=== PATIENT | female | born 1945 | race Caucasian/White ===

== ENCOUNTER 2016-09-18 09:30 | Inpatient (IN) | payer OTHER ==
[~2016-09-18] VITALS: Ht 167.6 cm; Wt 81.0 kg
[2016-09-20 10:45] VITALS: BMI 28.8
[2016-09-20 11:26] VITALS: BP_SYST 108; TEMP 97.8
[2016-10-06 16:14] VITALS: BMI 28.8
[2016-10-06 16:17] VITALS: BP_SYST 108; RESP 20; TEMP 97.8
[2016-10-09] VITALS (27 sets, daily range): BP systolic 100–139; RESP 14–20; TEMP 97.2–98.5; Ht 167.6 cm; Wt 81.0 kg
[2016-10-09] MEDS ORDERED: BACITRACIN 50,000 UNITS INJ IRRIG ONE (07:42)
[2016-10-09] MEDS ORDERED: PHENYLEPHRINE 10 MG/ML VIAL IV ONE (07:48)
[2016-10-09] MEDS ORDERED: DILAUDID 1 MG/ML AMP IV ONE (07:48)
[2016-10-09] MEDS ORDERED: NEOSTIGMINE 10 MG/10 ML VIAL IV ONE (07:48)
[2016-10-09] MEDS ORDERED: LIDOCAINE 2% SYR 5 ML IV ONE (07:48)
[2016-10-09] MEDS ORDERED: PROPOFOL 20 ML PER ML IV ONE (07:48)
[2016-10-09] MEDS ORDERED: ACETAMINOPHEN 1,000 MG/100 ML IV ONE (07:48)
[2016-10-09] MEDS ORDERED: FENTANYL 100 MCG/2 ML AMP IV ONE (07:48)
[2016-10-09] MEDS ORDERED: GLYCOPYRROLATE 0.2 MG/ML VIAL IV ONE ×2 (07:48→10:15)
[2016-10-09] MEDS ORDERED: ROCURONIUM 50 MG VIAL IV ONE (07:48)
[2016-10-09] MEDS ORDERED: SODIUM CHLORIDE 0.9% IV ONE ×4 (09:40)
[2016-10-09] MEDS ORDERED: TRANEXAMIC ACID IV ONE ×4 (09:40)
[2016-10-09] MEDS ORDERED: ROPIVACAINE 0.5% 139 MG, EPINEPHrine 1:1,000 0.2 MG, KETOROLAC INJ 30 MG, MORPHINE 10 MG SUBQ ONE ×4 (09:45)
[2016-10-09] MEDS ORDERED: CEFAZOLIN 2,000 MG in SODIUM CHLORIDE 0.9% 100 ML IV ONE (09:45)
[2016-10-09] MEDS ORDERED: BUPIVACAINE 0.5% PF 10ML EPIDURAL ONE (09:52)
[2016-10-09] MEDS ORDERED: BUPIVACA/EPI 0.5% PF 10 ML EPIDURAL ONE (09:54)
[2016-10-09] MEDS ORDERED: LACT RINGERS 1,000 ML IV SCH (10:15)
[2016-10-09] MEDS ORDERED: LIDOCAINE 1% BUFFERED 1 ML SYR INTRADERM PRN (10:15)
[2016-10-09] MEDS ORDERED: ONDANSETRON 4 MG VIAL IV ONE (10:15)
[2016-10-09] MEDS ORDERED: SCOPOLAMINE PATCH TRANSDERM ONE (10:15)
[2016-10-09] MEDS ORDERED: MIDAZOLAM 2 MG/2 ML INJ IV ONE ×2 (10:15→12:10)
[2016-10-09] MEDS ORDERED: MIDAZOLAM 2 MG/2 ML INJ ONE (12:00)
[2016-10-09] MEDS ORDERED: MORPHINE 2 MG/ML SYR IV PRN ×2 (12:50→14:40)
[2016-10-09] MEDS ORDERED: DILAUDID 1 MG/ML AMP IV PRN (12:50)
[2016-10-09] MEDS ORDERED: ONDANSETRON 4 MG VIAL IV PRN ×2 (12:50→14:40)
[2016-10-09] MEDS ORDERED: MEPERIDINE 25 MG/ML IV PRN (12:50)
[2016-10-09] MEDS ORDERED: OXYCODONE 5 MG TAB PO PRN (12:50)
[2016-10-09] MEDS ORDERED: MORPHINE 4 MG/ML SYR IV PRN (12:50)
[2016-10-09] MEDS ORDERED: ONDANSETRON 4 MG TAB PO PRN (14:40)
[2016-10-09] MEDS ORDERED: D5-1/2-NS W/KCL 20MEQ/L 1,000 ML IV SCH (14:40)
[2016-10-09] MEDS ORDERED: MAG HYDROX 30 ML UDC PO PRN (14:40)
[2016-10-09] MEDS ORDERED: KETOROLAC 30 MG/ML VIAL IV PRN (14:40)
[2016-10-09] MEDS ORDERED: SALINE FLUSH 10 ML FLUSH PRN (14:40)
[2016-10-09] MEDS ORDERED: ZOLPIDEM 5 MG TAB PO PRN (14:40)
[2016-10-09] MEDS: MULTIVITS/MINERALS (THERAGRAN M) TAB PO SCH (17:15)
[2016-10-09] MEDS: CEFAZOLIN 2,000 MG in SODIUM CHLORIDE 0.9% 100 ML IV SCH (18:09)
[2016-10-09] MEDS: SALINE FLUSH 10 ML FLUSH SCH (20:00)
[2016-10-09] MEDS ORDERED: DOCUSATE SOD 100 MG CAP PO SCH (21:00)
[2016-10-09] MEDS: ATENOLOL 25 MG TAB PO SCH (22:09)
[2016-10-09] MEDS: DOCUSATE SOD 100 MG CAP PO SCH (22:09)
[2016-10-09] MEDS: SENNA 8.6 MG TAB PO SCH (22:09)
[2016-10-09] MEDS: MORPHINE 4 MG/ML SYR IV PRN (22:11)
[2016-10-10] VITALS (7 sets, daily range): BP systolic 106–140; RESP 16–20; TEMP 97.5–99.7
[2016-10-10] MEDS: MORPHINE 4 MG/ML SYR IV PRN ×4 (00:14→06:06)
[2016-10-10] MEDS: CEFAZOLIN 2,000 MG in SODIUM CHLORIDE 0.9% 100 ML IV SCH ×3 (02:00→12:07)
[2016-10-10] MEDS: SODIUM CHLORIDE 0.9% FLUSH BAG 500 ML IV SCH ×2 (06:06→22:50)
[2016-10-10] MEDS: FONDAPARINUX 2.5 MG SYR SUBQ SCH (06:07)
[2016-10-10] MEDS: MULTIVITS/MINERALS (THERAGRAN M) TAB PO SCH (07:51)
[2016-10-10] MEDS: ATENOLOL 25 MG TAB PO SCH (07:51)
[2016-10-10] MEDS: POLYETHYLENE GLYCOL 17 GM PACKET PO SCH (07:51)
[2016-10-10] MEDS: DOCUSATE SOD 100 MG CAP PO SCH ×2 (07:51→20:40)
[2016-10-10] MEDS: MAG HYDROX 30 ML UDC PO SCH (07:51)
[2016-10-10] MEDS: SENNA 8.6 MG TAB PO SCH ×2 (07:51→20:39)
[2016-10-10] MEDS: SALINE FLUSH 10 ML FLUSH SCH ×2 (07:51→20:40)
[2016-10-10] MEDS ORDERED: REMOVE TRANSDERMAL PATCH TOPICAL ONE (11:25)
[2016-10-10] MEDS ORDERED: FLEET ENEMA 132 ML BTL RECTAL PRN (15:45)
[2016-10-11 03:15] VITALS: BP_SYST 134; RESP 18; TEMP 98.2
[2016-10-11] MEDS: FONDAPARINUX 2.5 MG SYR SUBQ SCH (05:37)
[2016-10-11 07:47] VITALS: BP_SYST 139; RESP 16; TEMP 99
[2016-10-11] MEDS: ATENOLOL 25 MG TAB PO SCH (08:46)
[2016-10-11] MEDS: DOCUSATE SOD 100 MG CAP PO SCH (08:46)
[2016-10-11] MEDS: SALINE FLUSH 10 ML FLUSH SCH (08:46)
[2016-10-11] MEDS: MAG HYDROX 30 ML UDC PO SCH (08:46)
[2016-10-11] MEDS: POLYETHYLENE GLYCOL 17 GM PACKET PO SCH (08:46)
[2016-10-11] MEDS: SENNA 8.6 MG TAB PO SCH (08:46)
[2016-10-11] MEDS: MULTIVITS/MINERALS (THERAGRAN M) TAB PO SCH (08:46)
[2016-10-11 11:43] VITALS: BP_SYST 132; RESP 16; TEMP 98.4
[2016-10-11 14:21] VITALS: BP_SYST 132; RESP 16; TEMP 98.4
[2016-10-12] MEDS ORDERED: REMOVE SCOPALAMINE PATCH XX ONE (10:15)
== END 2016-10-11 15:09 | DRG 470 ==
LOC: ENRESERVDT → ENRESERVTM → ENPENDDIS 10-09 09:31 → SDS 10-09 09:31 → 2NO 10-09 15:35
PROVIDERS: ADMIT Internal Medicine; ATTEND Internal Medicine
PROC: 3E0T3BZ Introduction of Anesthetic Agent into Peripheral Nerves and Plexi, Percutaneous Approach (ICD-10-PCS; 2016-10-09)
PROC: 0SRC0J9 Replacement of Right Knee Joint with Synthetic Substitute, Cemented, Open Approach (ICD-10-PCS; principal; 2016-10-09 11:54)
DX: M17.11 Unilateral primary osteoarthritis, right knee (principal); I10 Essential (primary) hypertension
CPT/HCPCS: 80048; 85014; 85018; 85025; 86850; 86900; 86901; 94762; 94799

== ENCOUNTER 2016-09-24 18:25 | Emergency (ER) | payer OTHER ==
[2016-09-24] MEDS ORDERED: ASPIRIN 81 MG CHEW TAB ONE (18:43)
== END 2016-09-24 21:40 | disposition home or self-care (01) ==
LOC: ER 18:25
CPT/HCPCS: 36415; 71010; 80053; 82550; 83735; 84484; 85025; 85610; 85730; 93005